=== PATIENT | female | born 1960 | race Two or more races ===

== ENCOUNTER 2019-06-21 23:45 | Emergency (ER) | payer OTHER ==
[~2019-06-21] VITALS: Ht 154.9 cm; Wt 113.4 kg
[~2019-06-21 23:45] MED LIST: ATACAND HCT 11 UDTA1 PO; SYNTHROID150 MCG PO; TESSALON PERLE100 M1 PO
[2019-06-22] MEDS ORDERED: SYNTHROID175 MCG (00:14)
[2019-06-22] MEDS ORDERED: DICLOFENAC SODI75 MG PO (03:18)
== END 2019-06-22 03:43 | disposition home or self-care (01) ==
LOC: ER 23:45
DX: R10.31 Right lower quadrant pain (principal); R10.32 Left lower quadrant pain

== ENCOUNTER 2023-05-28 19:34 | Emergency (ER) | payer OTHER ==
[~2023-05-28] VITALS: Ht 160 cm; Wt 122.5 kg
[~2023-05-28 19:34] MED LIST changes: +DICLOFENAC SODI75 MG PO; +SYNTHROID175 MCG
== END 2023-05-29 02:43 | disposition home or self-care (01) ==
LOC: ER 19:35
DX: M79.651 Pain in right thigh (principal); W18.30XA Fall on same level, unspecified, initial encounter; Y93.9 Activity, unspecified; Y92.9 Unspecified place or not applicable; Y99.9 Unspecified external cause status